=== PATIENT | male | born 1965 | race Two or more races ===

== ENCOUNTER 2022-02-15 19:43 | Inpatient (IN) | payer OTHER ==
[~2022-02-15] VITALS: Ht 167.6 cm; Wt 81.6 kg
[2022-02-15] MEDS ORDERED: LOSARTAN-HCTZ1 EAC2 (20:06)
[2022-02-19] MEDS ORDERED: CLOTRIMAZOLE45 G1 (14:14)
[2022-02-20] MEDS ORDERED: CLOTRIMAZOLE-BE15 G1 TOP (14:00)
[2022-02-20] MEDS ORDERED: Lantus 1000 UNITS/10 SUBCUTANEO (14:00)
[2022-02-20] MEDS ORDERED: AMOX-CLAV 875-1 EAC1 PO (14:00)
[2022-02-20] MEDS ORDERED: INTESTINEX680 M2 PO (14:00)
[2022-02-20] MEDS ORDERED: METFORMIN HCL500 M3 PO (14:00)
== END 2022-02-20 22:51 | disposition home or self-care (01) | DRG 638 ==
LOC: ER 19:43 → MEDJ 02-16 15:43 → MEDI 02-16 15:52
PROVIDERS: ADMIT Internal Medicine; ATTEND Internal Medicine
DX: E11.00 Type 2 diabetes mellitus with hyperosmolarity without nonketotic hyperglycemic-hyperosmolar coma (NKHHC) (principal); N17.8 Other acute kidney failure; N39.0 Urinary tract infection, site not specified; N48.1 Balanitis; N47.1 Phimosis; E86.0 Dehydration; I10 Essential (primary) hypertension; Z20.822 Contact with and (suspected) exposure to COVID-19